=== PATIENT | female | born 1930 | race Caucasian/White ===

== ENCOUNTER 2018-03-12 13:56 | Inpatient (IN) | payer OTHER ==
[~2018-03-12] VITALS: Ht 167.6 cm; Wt 78.3 kg
--- NOTE | ~2018-03-12 | HC ---
[facility] [place] [address] CONSULTATION Name: darcie billings Room #: 430-P [facility] IN M.R.#: [id number] Admission: 03/12/18 Attend Phys: Max Zhang MD Discharge: Date of : [birth year] Report #: [id number] THIS REPORT FOR: //name// CC: Max Feliz DATE OF SERVICE: 03/13/2018 CONSULTATION: Infectious diseases. HISTORY OF PRESENT ILLNESS: Darcie Billings is an 87-year-old white female who was admitted to [facility] on 03/12 because of depressed mental status, increasing coughing, and possible pneumonia. There is a note that her oxygen saturation was measured in the 70s. The patient had been on Levaquin for approximately a week or two for respiratory infection and apparently not improving. In this setting, the patient was admitted to the hospital and infectious disease consultation was requested. PAST MEDICAL HISTORY: Significant for dementia. The patient normally is conversant and interactive. She has a history of diabetes with hypertension, hyperlipidemia, and head injury. PAST SURGICAL HISTORY: Includes a hip replacement, knee replacement, and coronary artery bypass grafting. MEDICATION RECONCILIATION: The patient's current medication list is as follows: Lisinopril 20 mg p.o. daily, rivastigmine 4.6 mg transdermal daily, risperidone 0.25 mg daily, loratadine 10 mg daily, aspirin 81 mg p.o. daily, amlodipine 5 mg p.o. daily, vancomycin 500 mg IV every 12 hours, hydralazine 25 mg q. 6 hours p.r.n., heparin 5000 units subcutaneous t.i.d., insulin sliding scale, Zosyn 3.375 grams IV every 8 hours, melatonin 3 mg at bedtime, insulin glargine, lorazepam 0.5 mg p.o. p.r.n., divalproex 250 mg p.o. b.i.d., duloxetine 30 mg p.o. at bedtime, glucose and Glucagon p.r.n., Tylenol p.r.n., MiraLax 17 grams daily p.r.n., DuoNeb inhaler 3 mL every 4 hours inhalation. FAMILY HISTORY: Noncontributory. SOCIAL HISTORY: The patient is . She has been in the prison for several years because of her dementia. No history of tobacco, alcohol nor drugs. REVIEW OF SYSTEMS: Limited because of the patient's dementia. She does answer simple questions and denies any head, neck, chest, GI or complaints, but her reliability may not be very good. PHYSICAL EXAMINATION: [address] [address] CONSULTATION Name: darcie billings Room #: 430-P [facility] IN M.R.#: [id number] Admission: 03/12/18 Attend Phys: Max Zhang MD Discharge: Date of : [birth year] Report #: [id number] GENERAL: The patient appears her stated age, alert, but not verbal, not able to tell if she is oriented. Her eyes are open. She tracks. She does answer simple yes and no questions on occasion. She appears comfortable, not in any distress. Daughter notes her mental status is improved compared to yesterday when she came to the hospital. ENT: Negative. Lips are dry. Dentition is poor. Examination was limited, as the patient would not really open her mouth very widely. Mucous membranes cannot be evaluated. No adenopathy. NECK: Supple. HEART: Sounds S1, S2. LUNGS: Clear. ABDOMEN: Belly soft, not tender. EXTREMITIES: No cyanosis, no edema. LABORATORY DATA: [place] admission was 710[address], hemoglobin 14.5, platelets 330,000. Electrolytes: Sodium 145, potassium 3.4. The chloride 111, bicarbonate 23, BUN 23, creatinine was 1.6 on admission and came down to 1.1, glucose has ranged from 332 to 131. The lactate was initially elevated at 2.2. Urinalysis is negative. IMAGING DATA: The chest x-ray shows some left lower lobe atelectasis. The CT of the head showed atrophic changes in the brain with extensive sinusitis, as well as extensive cerebral artery calcification. Although the sinus CT was not ordered, the head CT showed extensive opacification in the right maxillary sinus, the ethmoid air cells, as well as the frontal sinuses. IMPRESSION: Dementia with acute sinusitis, not better with Levaquin. I would suggest that we change antibiotics from Levaquin to Zosyn. This would give us better activity against strep and anaerobes. I do not think we need vancomycin, as Methicillin-resistant Staphylococcus aureus would be an unusual initial pathogen for sinusitis. I would like to use Flonase in the nose if the patient can cooperate. I will ask her to keep the head of bed elevated, use guaifenesin to facilitate drainage from the sinuses. I would like to check hemoglobin A1c. I discussed my impressions and plans with the patient's daughter at the bedside. I am hopeful that more intensive antibiotic therapy and attempts to facilitate sinus drainage will allow the patient to improve back to her baseline. I will stop the loratadine, as this tends to mucus more dry and will use the guaifenesin instead to try to facilitate drainage. [address] [address] CONSULTATION Name: manuelitodarcie Room #: 430-P ADM IN M.R.#: [id number] Admission: 03/12/18 Attend Phys: Max Zhang MD Discharge: Date of : [birth year] Report #: [id number] Thank you for this consultation. <ELECTRONICALLY SIGNED> By: Adriano Patino MD 03/14/18 1632 [id number] Adriano Patino MD /nt
[~2018-03-12 13:56] MED LIST: ACETAMINOPHEN; ACTOS 30 MG TAB30 MG PO; ADULT LOW DOSE81 MG PO; AMLODIPINE BESYL5 M1 PO; CYMBALTA60 MG PO; FENOFIBRATE160 MG PO; IBUPROFEN 200200 M1; QUINAPRIL 20 MG20 MG PO; VALIUM5 MG PO; ZOFRAN ODT4 MG PO
[2018-03-12 14:07] VITALS: BP 148/76
[2018-03-12 14:16] LABS: HEMATOCRIT 44.8 % (37.0-47.0); HEMOGLOBIN 14.5 gm/dL (12.0-15.0); MCH 26.9 pg (26.0-34.0); MCHC 32.3 g/dL (28.0-37.0); MCV 83.1 fL (80.0-100.0); RBC 5.39 mil/uL (4.20-5.00); RDW 15.1 % (10.5-14.5); WBC 17.2 thou/uL (4.0-11.0)
[2018-03-12 14:19] LABS: CALCIUM 9.6 mg/dL (8.5-10.1); CREATININE 1.6 mg/dL (0.6-1.0); POTASSIUM 3.7 mmol/L (3.5-5.1)
[2018-03-12] MEDS ORDERED: CLARITIN10 MG PO (14:23)
[2018-03-12] MEDS ORDERED: DEPAKOTE 250MG250 M1 PO (14:24)
[2018-03-12] MEDS ORDERED: IPRAT-ALBUT 0.5-3 ML INH (14:46)
[2018-03-12] MEDS ORDERED: ATIVAN0.5 MG PO (14:47)
[2018-03-12] MEDS ORDERED: NUEDEXTA 20-101 EACH PO (14:48)
[2018-03-12] MEDS ORDERED: RISPERIDONE 00.25 M1 PO (14:48)
[2018-03-12] MEDS ORDERED: LANTUS SOL100 UNIT/1 SUBQ (14:50)
[2018-03-12] MEDS ORDERED: LEVAQUIN 500 M500 M2 PO (14:51)
[2018-03-12] MEDS ORDERED: RIVASTIGMINE1 EAC1 TOP (14:52)
[2018-03-12] MEDS ORDERED: MELATONIN3 MG PO (14:53)
[2018-03-12 16:42] LABS: URINE BILIRUBIN NEGATIVE (Negative); URINE BLOOD NEGATIVE (Negative); URINE CLARITY CLEAR; URINE COLOR YELLOW; URINE GLUCOSE-RANDOM* NEGATIVE (Negative); URINE KETONES NEGATIVE (Negative); URINE LEUKOCYTES NEGATIVE (Negative); URINE NITRITE NEGATIVE (Negative); URINE PROTEIN (DIPSTICK) 2+ (Negative); URINE SPECIFIC GRAVITY 1.025 (1.005-1.035)
[2018-03-12 16:59] LABS: CASTS None Seen /LPF (None Seen); CRYSTALS None Seen /LPF (None Seen); SQUAMOUS 0-3 Few /LPF (0-3); URINE RBC None Seen /HPF (0-2); URINE WBC 0-5 Rare /HPF (0-5)
[2018-03-12 17:11] VITALS: BP 162/79
[2018-03-12 17:56] VITALS: BP 162/79
[2018-03-12 19:48] VITALS: BP 129/65
[2018-03-13 05:14] LABS: HEMOGLOBIN 13.9 gm/dL (12.0-15.0); MCH 26.4 pg (26.0-34.0); MCHC 32.4 g/dL (28.0-37.0); MCV 81.5 fL (80.0-100.0); RBC 5.27 mil/uL (4.20-5.00); RDW 14.9 % (10.5-14.5); WBC 15.7 thou/uL (4.0-11.0)
[2018-03-13 05:28] LABS: CALCIUM 9.1 mg/dL (8.5-10.1); CREATININE 1.1 mg/dL (0.6-1.0); POTASSIUM 3.4 mmol/L (3.5-5.1)
[2018-03-13 05:35] VITALS: BP 192/84
[2018-03-13 07:36] VITALS: BP 176/87
[2018-03-13 15:10] VITALS: BP 176/87
[2018-03-13 19:30] VITALS: BP 145/94
[2018-03-14 04:44] VITALS: BP 141/79
[2018-03-14 06:16] LABS: HEMATOCRIT 43.4 % (37.0-47.0); HEMOGLOBIN 14.1 gm/dL (12.0-15.0); MCH 26.5 pg (26.0-34.0); MCHC 32.4 g/dL (28.0-37.0); MCV 81.7 fL (80.0-100.0); PLATELET COUNT 305 thou/uL (150-400); RBC 5.31 mil/uL (4.20-5.00); RDW 15.2 % (10.5-14.5); WBC 20.6 thou/uL (4.0-11.0)
[2018-03-14 06:24] LABS: CALCIUM 9.1 mg/dL (8.5-10.1); CREATININE 1.4 mg/dL (0.6-1.0); POTASSIUM 3.2 mmol/L (3.5-5.1)
[2018-03-14 06:48] LABS: ABSOLUTE NEUTROPHILS 17.9 thou/uL (1.4-8.2); ANISOCYTOSIS SLIGHT
[2018-03-14 08:17] VITALS: BP 168/91
[2018-03-14 10:35] VITALS: BP 168/91
[2018-03-14 19:30] VITALS: BP 137/69
[2018-03-15 03:50] VITALS: BP 149/74
[2018-03-15 04:24] LABS: CALCIUM 9.5 mg/dL (8.5-10.1); CREATININE 1.3 mg/dL (0.6-1.0); POTASSIUM 3.2 mmol/L (3.5-5.1)
[2018-03-15 04:27] LABS: HEMATOCRIT 42.8 % (37.0-47.0); HEMOGLOBIN 13.9 gm/dL (12.0-15.0); MCH 26.7 pg (26.0-34.0); MCHC 32.5 g/dL (28.0-37.0); MCV 82.2 fL (80.0-100.0); PLATELET COUNT 293 thou/uL (150-400); RDW 15.6 % (10.5-14.5); WBC 17.3 thou/uL (4.0-11.0)
[2018-03-15 05:04] LABS: ABSOLUTE NEUTROPHILS 12.3 thou/uL (1.4-8.2); LARGE PLATELETS OCCASIONAL; METAMYELOCYTES 1 %
[2018-03-15 05:05] LABS: PLATELET ESTIMATE NORMAL
[2018-03-15 07:25] VITALS: BP 146/64
[2018-03-15 13:11] LABS: GLYCOHEMOGLOBIN (HGB A1C) 6.8 % (4.8-5.6)
[2018-03-15 15:46] VITALS: BP 151/78
[2018-03-15 19:30] VITALS: BP 154/84
[2018-03-16 04:02] VITALS: BP 170/86
[2018-03-16 08:35] VITALS: BP 192/109
[2018-03-16] MEDS ORDERED: NYSTATIN100000 UNI SWISH&SPIT (10:45)
[2018-03-16] MEDS ORDERED: HYDRALAZINE 2525 MG PO (10:46)
== END 2018-03-16 17:45 | disposition hospice, inpatient (51) | DRG 177 ==
LOC: ER 13:56 → 4E 16:13 → EROBS 16:13 → 4E 18:53
PROVIDERS: Hospitalist; Internal Medicine Infectious Disease; Student in an Organized Health Care Education/Training Program
DX: J15.6 Pneumonia due to other Gram-negative bacteria (principal); N17.0 Acute kidney failure with tubular necrosis; G92 Toxic encephalopathy; F03.91 Unspecified dementia, unspecified severity, with behavioral disturbance; E87.0 Hyperosmolality and hypernatremia; J98.11 Atelectasis; E87.6 Hypokalemia; J01.90 Acute sinusitis, unspecified; Z66 Do not resuscitate; T50.905A Adverse effect of unspecified drugs, medicaments and biological substances, initial encounter; E78.5 Hyperlipidemia, unspecified; I25.10 Atherosclerotic heart disease of native coronary artery without angina pectoris; I12.9 Hypertensive chronic kidney disease with stage 1 through stage 4 chronic kidney disease, or unspecified chronic kidney disease; N18.9 Chronic kidney disease, unspecified; E11.22 Type 2 diabetes mellitus with diabetic chronic kidney disease; E78.00 Pure hypercholesterolemia, unspecified; G51.0 Bell's palsy; Z96.652 Presence of left artificial knee joint; Z96.641 Presence of right artificial hip joint; Z79.2 Long term (current) use of antibiotics; Z79.82 Long term (current) use of aspirin; Z99.3 Dependence on wheelchair; Z79.899 Other long term (current) drug therapy; Z88.8 Allergy status to other drugs, medicaments and biological substances; Z87.820 Personal history of traumatic brain injury; Z95.1 Presence of aortocoronary bypass graft; Y92.89 Other specified places as the place of occurrence of the external cause
CPT/HCPCS: 10183